=== PATIENT | female | born 1965 | race Caucasian/White ===

== ENCOUNTER 2021-07-15 07:39 | Observation (INO) ==
[2021-07-15] MEDS ORDERED: Aspirin 81 MG TAB.CHEW PO ONE (07:46)
[2021-07-15 08:29] LABS: Basophils # 0.1 K/mcL (0.0-0.2); Basophils % 1.2 %; Eosinophils # 0.1 K/mcL (0.0-0.6); Eosinophils % 2.5 %; Hematocrit 37.9 % (35.3-44.9); Hemoglobin 12.5 g/dL (11.5-15.4); Immature Granulocytes % 0.4 % (0-4); Lymphocytes # 1.7 K/mcL (0.6-4.6); Lymphocytes % 33.9 %; Mean Corpuscular Hemoglobin 28.5 pg (28.0-33.3); Mean Corpuscular Volume 86.3 fL (83.0-100.0); Mean Platelet Volume 9.6 fL (9.4-12.4); Monocytes # 0.5 K/mcL (0.0-1.3); Monocytes % 10.6 %; Neutrophils # 2.6 K/mcL (1.6-8.9); Platelet Count 179 K/mcL (140-400); Red Blood Count 4.39 M/mcL (3.82-4.97); Red Cell Distribution Width 15.5 % (11.5-14.5); Segmented Neutrophils % 51.4 %; White Blood Count 5.1 K/mcL (4.3-11.1)
[2021-07-15 08:50] LABS: BUN/Creatinine Ratio 14 (6-26); Blood Urea Nitrogen 13 mg/dL (6-20); Calcium 9.6 mg/dL (8.6-10.3); Carbon Dioxide 25 mEq/L (23-29); Chloride 108 mEq/L (98-107); Glucose 98 mg/dL (70-105); Osmolality,Calculated 292 (280-300); Potassium 3.7 mEq/L (3.5-5.1); Sodium 141 mEq/L (136-145); eGFR For African Americans > 60 (> 60); eGFR For Non-African Americans > 60 (> 60)
[2021-07-15 08:51] LABS: Troponin I < 0.03 ng/mL (< 0.04)
[2021-07-15] MEDS ORDERED: Naloxone 0.4 MG/ML INJ IVP PRN (09:10)
[2021-07-15] MEDS ORDERED: *HR* LORazepam 2 MG/ML VIAL IVP ONE (10:54)
[2021-07-15] MEDS ORDERED: Morphine Sulfate 2 MG/ML SYRINGE IVP ONE (10:55)
[2021-07-15] MEDS: Morphine Sulfate 2 MG/ML SYRINGE IVP PRN ×2 (15:37→21:34)
[2021-07-15] MEDS ORDERED: Saline Nasal Spray 44 ML BOTTLE NS PRN (15:48)
[2021-07-15] MEDS: Nicotine 21 MG PATCH.TD24 TD SCH (16:07)
[2021-07-15] MEDS ORDERED: *HR* LORazepam 1 MG TABLET PO ONE (19:12)
[2021-07-15] MEDS ORDERED: Acetaminophen 325 MG TABLET PO ONE (23:10)
[2021-07-16 03:10] LABS: Basophils % 0.6 %; Eosinophils # 0.1 K/mcL (0.0-0.6); Eosinophils % 2.7 %; Hematocrit 36.3 % (35.3-44.9); Hemoglobin 11.7 g/dL (11.5-15.4); Immature Granulocytes % 0.2 % (0-4); Lymphocytes # 1.9 K/mcL (0.6-4.6); Lymphocytes % 36.6 %; Mean Corpuscular HGB Conc 32.2 g/dL (31.6-35.5); Mean Corpuscular Hemoglobin 28.1 pg (28.0-33.3); Mean Corpuscular Volume 87.1 fL (83.0-100.0); Monocytes # 0.5 K/mcL (0.0-1.3); Monocytes % 10.1 %; Neutrophils # 2.6 K/mcL (1.6-8.9); Platelet Count 188 K/mcL (140-400); Red Blood Count 4.17 M/mcL (3.82-4.97); Red Cell Distribution Width 15.5 % (11.5-14.5); Segmented Neutrophils % 49.8 %; White Blood Count 5.1 K/mcL (4.3-11.1)
[2021-07-16 03:19] LABS: BUN/Creatinine Ratio 14 (6-26); Blood Urea Nitrogen 12 mg/dL (6-20); Calcium 9.4 mg/dL (8.6-10.3); Carbon Dioxide 24 mEq/L (23-29); Chloride 106 mEq/L (98-107); Glucose 108 mg/dL (70-105); Osmolality,Calculated 284 (280-300); Potassium 3.5 mEq/L (3.5-5.1); Sodium 137 mEq/L (136-145); eGFR For African Americans > 60 (> 60); eGFR For Non-African Americans > 60 (> 60)
[2021-07-16] MEDS ORDERED: *HR* Enoxaparin 40 MG/0.4 ML SYRINGE SQ SCH (06:00)
[2021-07-16] MEDS ORDERED: Regadenoson 0.4 MG/5 ML SYRINGE IVP ONE (07:03)
[2021-07-16 10:36] VITALS: BP 130/80; PULSE 106; TEMP 97.9; O2SAT 97
[2021-07-16] MEDS ORDERED: GuaiFENesin/Codeine Oral Soln 5 ML UDC PO PRN (10:45)
[2021-07-16] MEDS: Nicotine 21 MG PATCH.TD24 TD SCH (10:51)
== END 2021-07-16 12:08 | disposition home or self-care (01) ==
LOC: 3BNU 07:39 → EMEROOARM 07:39 → SUATTDRO 09:13 → 3BNU 10:20
PROVIDERS: ADMIT Internal Medicine; ATTEND Registered Nurse